=== PATIENT | female | born 1975 | race Caucasian/White ===

== ENCOUNTER 2017-07-26 18:27 | Emergency (ER) | payer OTHER ==
[~2017-07-26] VITALS: Ht 160 cm; Wt 74.8 kg
[~2017-07-26 18:27] MED LIST: ABILIFY10 MG PO; ALBUTEROL0.09 MG/A2 IH; ALBUTEROL0.09 MG/A2 INH; AMOXIL500 MG PO; AUGMENTIN 875875 MG PO; BACTRIM DS 8001 TA1 PO; BENTYL10 MG PO; CENTRUM1 TA1 PO; DAILY MULTIPLE1 TA3 PO; FLEXERIL10 MG PO; FLUTICASON0.05 MG/A2 NAS; MIRALAX17 GM/DOSE PO; NEOMYCIN-POLYMYXIN-H OT; TRAZADONE HYDR100 MG PO; VISTARIL25 M1 PO; ZYRTEC10 M2 PO
[2017-07-26 18:51] LABS: BILIRUBIN NEGATIVE (NEGATIVE); BLOOD 3+ (NEGATIVE); CLARITY CLEAR (CLEAR); COLOR YELLOW (YELLOW); GLUCOSE NEGATIVE (NEGATIVE); KETONE NEGATIVE (NEGATIVE); LEUKO ESTERASE NEGATIVE (NEGATIVE); NITRITE NEGATIVE (NEGATIVE); PH 5.5 (5.0-9.0); SPECIFIC GRAVITY <= 1.005 (1.005-1.030); UROBILINOGEN 0.2 E.U./dl (0.2-1.0)
[2017-07-26 19:14] LABS: BACTERIA TRACE; EPITHELIAL CELLS 25-30; WBC 0-2 wbc/hpf (0-5)
[2017-07-26] MEDS ORDERED: PYRIDIUM200 M1 PO (19:22)
[2017-07-26] MEDS ORDERED: SEPTDS PO (19:22)
== END 2017-07-26 19:14 | disposition home or self-care (01) ==
LOC: ED 18:27
PROVIDERS: Nurse Practitioner Family
DX: R30.0 Dysuria (principal); R31.9 Hematuria, unspecified; R03.0 Elevated blood-pressure reading, without diagnosis of hypertension; Z88.0 Allergy status to penicillin; Z79.899 Other long term (current) drug therapy

== ENCOUNTER 2018-06-10 15:22 | Emergency (ER) | payer OTHER ==
[~2018-06-10] VITALS: Ht 160 cm; Wt 81.6 kg
[~2018-06-10 15:22] MED LIST changes: +CLARITIN10 MG PO; +FIBER TABLETS625 MG PO; +FLONASE ALLERG9.9 ML NAS; +LINZESS290 MC1 PO; +PYRIDIUM200 M1 PO; +SEPTDS PO
[2018-06-10] MEDS ORDERED: PREDNISONE10 MG PO (16:14)
[2018-06-10] MEDS ORDERED: CLARITIN10 MG PO (16:14)
[2018-06-10] MEDS ORDERED: FLONASE ALLERG9.9 ML NAS (16:14)
[2018-06-10] MEDS ORDERED: MUCINEX DM ER1 EACH PO (16:14)
[2018-10-09] MEDS ORDERED: PREDNISONE20 M1 PO (11:06)
[2018-10-09] MEDS ORDERED: ALLEGRA ALLERG180 M2 PO (11:06)
[2018-10-09] MEDS ORDERED: PROVENTIL HFA6.7 GM INH (11:06)
[2018-10-09] MEDS ORDERED: DOXYCYCLINE100 M3 PO (11:06)
== END 2018-06-10 17:21 | disposition home or self-care (01) ==
LOC: ED 15:22
DX: B34.9 Viral infection, unspecified (principal); F17.200 Nicotine dependence, unspecified, uncomplicated; Z91.040 Latex allergy status; Z88.0 Allergy status to penicillin

== ENCOUNTER 2018-12-30 14:28 | Emergency (ER) | payer OTHER ==
[~2018-12-30] VITALS: Ht 160 cm; Wt 81.6 kg
[~2018-12-30 14:28] MED LIST changes: +ALLEGRA ALLERG180 M2 PO; +DOXYCYCLINE100 M3 PO; +MUCINEX DM ER1 EACH PO; +PREDNISONE10 MG PO; +PREDNISONE20 M1 PO; +PROVENTIL HFA6.7 GM INH
[2018-12-30] MEDS ORDERED: PREDNISONE10 MG PO (14:45)
== END 2018-12-30 14:54 | disposition home or self-care (01) ==
LOC: ED 14:28
DX: L23.7 Allergic contact dermatitis due to plants, except food (principal); Z91.040 Latex allergy status; Z88.0 Allergy status to penicillin

== ENCOUNTER → 2022-08-03 | Outpatient (CLI) | payer OTHER | END | disposition home or self-care (01) | LOC: LAB 15:47 | PROVIDERS: ATTEND Nurse Practitioner Women's Health | DX: N95.1 Menopausal and female climacteric states (principal); Z72.51 High risk heterosexual behavior ==

== ENCOUNTER → 2022-08-11 | Outpatient (CLI) | payer OTHER | END | disposition home or self-care (01) | LOC: MAMMO 00:32 | PROVIDERS: ATTEND Nurse Practitioner Women's Health | DX: Z12.31 Encounter for screening mammogram for malignant neoplasm of breast (principal); N63.11 Unspecified lump in the right breast, upper outer quadrant; N63.21 Unspecified lump in the left breast, upper outer quadrant ==

== ENCOUNTER 2023-08-12 18:05 | Emergency (ER) | payer OTHER ==
[~2023-08-12] VITALS: Ht 160 cm; Wt 90.7 kg
[2023-08-12 19:13] LABS: BILIRUBIN Negative (Negative); BLOOD Negative (Negative); CLARITY Clear (Clear); COLOR Yellow (Yellow); GLUCOSE Negative (Negative); KETONE Negative (Negative); LEUKO ESTERASE Negative (Negative); NITRITE Negative (Negative); PH 5.5 (4.5-8.0); UROBILINOGEN 0.2 E.U./dl (0.0-1.0)
[2023-08-12 19:19] LABS: EPITHELIAL CELLS 0-2
[2023-08-12 20:00] LABS: BASO # 0.1 10*3/uL (0.0-0.1); BASO % 0.7 % (0.0-1.0); EOS # 0.2 10*3/uL (0.0-0.4); HEMATOCRIT 41.2 % (37.0-47.0); LYMPH # 1.5 10*3/uL (1.3-4.4); LYMPH % 20.3 % (27.0-41.0); MEAN CELL VOLUME 90.2 fl (81.0-99.0); MEAN CORPUSCULAR HGB 29.1 pg (27.0-31.0); MEAN CORPUSCULAR HGB CONC 32.3 g/dl (33.0-37.0); MEAN PLATELET VOLUME 9.4 fl (9.6-12.3); MONO # 0.7 10*3/uL (0.1-1.0); MONO % 8.8 % (3.0-9.0); NEUT % 67.9 % (47.0-73.0); PLATELET COUNT AUTOMATED 324 10*3/uL (130-400); RED BLOOD COUNT 4.57 10*6/uL (4.10-5.10); RED CELL DISTRI WIDTH 12.5 % (0-14.5); WHITE BLOOD COUNT 7.4 10*3/uL (4.8-10.8)
[2023-08-12 20:17] LABS: ALKALINE PHOSPHATASE 66 U/L (46-116); BUN 19 mg/dl (9-23); CHLORIDE 106 mmol/L (98-107); LIPASE 48 U/L (12-53); POTASSIUM 3.5 mmol/L (3.4-5.1); SGPT/ALT 19 U/L (5-49); TOTAL PROTEIN 7.5 gm/dL (6.0-8.0)
[2023-08-12] MEDS ORDERED: Ketorolac Tromethamine 60 MG/2 ML VIAL IM ONE (21:20)
== END 2023-08-12 21:37 | disposition home or self-care (01) ==
LOC: ED 18:05
PROVIDERS: Internal Medicine
DX: R10.30 Lower abdominal pain, unspecified (principal); M54.50 Low back pain, unspecified; R39.198 Other difficulties with micturition; R35.0 Frequency of micturition; J45.909 Unspecified asthma, uncomplicated; F32.A Depression, unspecified; Z91.040 Latex allergy status; Z88.0 Allergy status to penicillin; Z98.890 Other specified postprocedural states

== ENCOUNTER 2024-06-19 14:52 | Emergency (ER) | payer MEDICAID ==
[~2024-06-19] VITALS: Ht 160 cm; Wt 90.7 kg
[2024-06-19] MEDS ORDERED: Ondansetron Hydrochloride 4 MG TAB SL ONE (15:30)
[2024-06-19 15:39] LABS: BILIRUBIN Negative (Negative); BLOOD Negative (Negative); CLARITY Clear (Clear); COLOR Yellow (Yellow); GLUCOSE Negative (Negative); KETONE Negative (Negative); LEUKO ESTERASE Negative (Negative); NITRITE Negative (Negative); PH 6.5 (4.5-8.0); SPECIFIC GRAVITY <= 1.005 (1.001-1.030); UROBILINOGEN 0.2 E.U./dl (0.0-1.0)
[2024-06-19 15:51] LABS: BASO # 0.1 10*3/uL (0.0-0.1); BASO % 0.7 % (0.0-1.0); EOS # 0.1 10*3/uL (0.0-0.4); EOS % 1.8 % (1.0-4.0); HEMATOCRIT 38.9 % (37.0-47.0); MEAN CELL VOLUME 90.5 fl (81.0-99.0); MEAN CORPUSCULAR HGB 29.1 pg (27.0-31.0); MEAN CORPUSCULAR HGB CONC 32.1 g/dl (33.0-37.0); MONO # 0.6 10*3/uL (0.1-1.0); MONO % 7.7 % (3.0-9.0); NEUT # 5.5 10*3/uL (2.3-7.9); NEUT % 71.9 % (47.0-73.0); PLATELET COUNT AUTOMATED 310 10*3/uL (130-400); RED CELL DISTRI WIDTH 12.9 % (0-14.5); WHITE BLOOD COUNT 7.7 10*3/uL (4.8-10.8)
[2024-06-19 16:05] LABS: BACTERIA 1+; WBC 0-2 wbc/hpf (0-5)
[2024-06-19 16:16] LABS: BUN 12 mg/dl (9-23); CHLORIDE 106 mmol/L (98-107); POTASSIUM 3.6 mmol/L (3.4-5.1)
[2024-06-19] MEDS ORDERED: PYRIDIUM100 MG PO (16:47)
== END 2024-06-19 17:08 | disposition home or self-care (01) ==
LOC: ED 14:52
PROVIDERS: Nurse Practitioner Family
DX: R30.0 Dysuria (principal); J45.909 Unspecified asthma, uncomplicated; F32.A Depression, unspecified; Z88.0 Allergy status to penicillin; Z91.040 Latex allergy status; Z98.890 Other specified postprocedural states